=== PATIENT | female | born 1950 | race Hispanic/Latino ===

== ENCOUNTER 2017-02-24 13:28 | Observation (INO) | payer MEDICARE, OTHER ==
[2017-02-24 13:36] VITALS: BMI 36.7
--- NOTE | 2017-02-24 13:41 | ED PDOC ---
Arrival/HPI - General Time Seen by Provider: 02/24/17 13:34 Historian: Patient - History of Present Illness Narrative History of Present Illness (Text): 02/24/17 13:38 66yo female with Past medical history of hypertension and vertigo biba for 2days history of persistent dizziness. States she took her medication, but still dizzy. States she hears a "cracking" noise in her ears, whenever she bites on food. Also note rhinorrhea for 2days. Denies fever, chills, cough, chest pain, focal weakness, nausea, vomiting, sick contact, any other complaint. Past Medical History - Provider Review Nursing Documentation Reviewed: Yes - Infectious Disease Hx of Infectious Diseases: None - Tetanus Immunization Tetanus Immunization: Unknown - Past Medical History Past Medical History: Non-Contributing - Cardiac Hx Pacemaker: No - Neurological Hx Paralysis: No - HEENT Other/Comment: missing teeth and front bottom right tooth loose - Hematological/Oncological Hx Blood Transfusions: No Hx Blood Transfusion Reaction: No - Integumentary Other/Comment: multiple discoloration to ble - Musculoskeletal/Rheumatological Hx Musculoskeletal Disorders: No - Psychiatric Hx Emotional Abuse: No Hx Physical Abuse: No Hx Substance Use: No - Past Surgical History Past Surgical History: Non-Contributing - Surgical History Hx Inguinal Hernia Repair: Yes (umbilical hernia repair) Other/Comment: stitches in chin left knee head from various childhood accidents. - Anesthesia Hx Anesthesia Reactions: No Hx Malignant Hyperthermia: No - Suicidal Assessment Feels Threatened In Home Enviroment: No Family/Social History - Physician Review Nursing Documentation Reviewed: Yes Family/Social History: Unknown Family HX Smoking Status: Never Smoked Hx Alcohol Use: No Hx Substance Use: No Hx Substance Use Treatment: No Allergies/Home Meds Allergies/Adverse Reactions: Allergies No Known Allergies Allergy (Verified 05/23/15 09:38) Home Medications: Home Meds Medication Instructions Recorded Confirmed Amlodipine Besylate [Norvasc] 5 mg PO DAILY 08/10/14 02/24/17 Meclizine HCl [Antivert/25] 25 mg PO TID 08/21/15 02/24/17 Review of Systems - Physician Review All systems were reviewed & negative as marked: Yes - Review of Systems Constitutional: Normal Eyes: Normal ENT: Rhinorrhea Respiratory: Normal Cardiovascular: Normal Gastrointestinal: Normal Genitourinary Female: Normal Musculoskeletal: Normal Skin: Normal Neurological: Dizziness. absent: Headache, Focal Weakness, Speech Changes, Facial Droop Endocrine: Normal Hemo/Lymphatic: Normal Psychiatric: Normal Physical Exam Vital Signs Reviewed: Yes Vital Signs Temp Pulse Resp BP Pulse Ox 02/24/17 17:48 75 24 149/70 97 02/24/17 13:28 98.1 F 68 18 157/75 H 98 Temperature: Afebrile Blood Pressure: Normal Pulse: Regular Respiratory Rate: Normal Appearance: Positive for: Well-Appearing, Non-Toxic, Comfortable Pain Distress: None Mental Status: Positive for: Alert and Oriented X 3 - Systems Exam Head: Present: Atraumatic, Normocephalic Pupils: Present: PERRL Extroacular Muscles: Present: EOMI Conjunctiva: Present: Normal Mouth: Present: Moist Mucous Membranes Neck: Present: Normal Range of Motion Respiratory/Chest: Present: Clear to Auscultation, Good Air Exchange. No: Respiratory Distress, Accessory Muscle Use Cardiovascular: Present: Regular Rate and Rhythm, Normal S1, S2. No: Murmurs Abdomen: Present: Normal Bowel Sounds. No: Tenderness, Distention, Peritoneal Signs Back: Present: Normal Inspection Upper Extremity: Present: Normal Inspection. No: Cyanosis, Edema Lower Extremity: Present: Normal Inspection. No: Edema Neurological: Present: GCS=15, CN II-XII Intact, Speech Normal, Motor Func Grossly Intact, Normal Sensory Function, Normal Cerebellar Funct, Norm Deep Tendon Reflexes, Gait Normal, Memory Normal, Normal 2Pt Descrimination, Other ( No focal neurological deficit) Skin: Present: Warm, Dry, Normal Color. No: Rashes Psychiatric: Present: Alert, Oriented x 3, Normal Insight, Normal Concentration Medical Decision Making ED Course and Treatment: 02/24/17 17:03 PT presented for stated history. she was neurologically stable in Emergency department. Lab was unremarkable. Head CT ordered EKG Sinus rhythm with fusion complexes @75bpm Pt however continue to complain of dizziness. 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 Mecline was ordered in Emergency department. Case was DW Dr. Brady and she was placed on Tele OBS. Head CT - IMPRESSION: No acute intracranial hemorrhage or large acute infarct so far as can be seen. Suspect minimal chronic periventricular white matter ischemic changes Moderate generalized volume loss. - Lab Interpretations Lab Results: 02/24/17 14:05 02/24/17 14:05 Lab Results 02/24/17 16:15: Urine Color Yellow, Urine Appearance Clear, Urine pH 7.0, Ur Specific [place] 1.015, Urine Protein Negative, Urine Glucose (UA) Negative, Urine Ketones Trace H, Urine Blood Negative, Urine Nitrate Negative, Urine Bilirubin Negative, Urine Urobilinogen 0.2, Ur Leukocyte Esterase Negative 02/24/17 14:05: Sodium 140, Potassium 4.0, Chloride 107, Carbon Dioxide 23, Anion Gap 14, BUN 12, Creatinine 0.6 L, Est GFR ( Amer) > 60, Est GFR ( Non-Af Amer) > 60, Random Glucose 95, Calcium 9.4, Total Bilirubin 0.7, AST 29, ALT 46, Alkaline Phosphatase 45, Lactate Dehydrogenase 611, Total Creatine Kinase 95, Troponin I < 0.01, Total Protein 6.8, Albumin 4.1, Globulin 2.8, Albumin/Globulin Ratio 1.5 02/24/17 14:05: PT 11.1, INR 1.02, APTT 31.1 02/24/17 14:05: WBC 4.9, RBC 5.09, Hgb 14.2, Hct 43.3, MCV 85.1, MCH 27.9, MCHC 32.8, RDW 13.8, Plt Count 189, MPV 12.1 H, Gran % 48.4 L, Lymph % (Auto) 41.8 H , [place] % (Auto) 6.1 H, Eos % (Auto) 2.9, Baso % (Auto) 0.8, Gran # 2.37, Lymph # 2.1, Emm[place] # 0.3, Eos # 0.1, Baso # 0.04 - RAD Interpretation Radiology Orders: 02/24/17 16:33 HEAD W/O CONTRAST [CT] Stat - Medication Orders Current Medication Orders: Amlodipine Besylate (Norvasc) 5 mg PO DAILY [facility] Sodium Chloride (Sodium Chloride 0.45%) 1,000 mls @ 60 mls/hr IV .[id number] [facility] Meclizine HCl (Antivert) 25 mg PO TID [facility]INO Discontinued Medications Sodium Chloride (Sodium Chloride 0.9%) 1,000 mls @ 100 mls/hr IV .Q10H STA Stop: 02/25/17 02:38 Last Admin: 02/24/17 17:00 Dose: 100 mls/hr eMAR Start Stop Document 02/24/17 17:00 RG (Rec: 02/24/17 17:37 RG [id number]) Intravenous Solution Start Date 02/24/17 Start Time 17:00 End Date 02/24/17 Meclizine HCl (Antivert) 25 mg PO STAT STA Stop: 02/24/17 16:49 Last Admin: 02/24/17 17:00 Dose: 25 mg Disposition/Present on Arrival - Present on Arrival Any Indicators Present on Arrival: No History of DVT/PE: No History of Uncontrolled Diabetes: No Urinary Catheter: No History Surgical Site Infection Following: None - Disposition Have Diagnosis and Disposition been Completed?: Yes Diagnosis: Near syncope Disposition: HOSPITALIZED Disposition Time: 16:35 Patient Problems: Current Active Problems Problem Status Onset Near syncope Acute Condition: FAIR
[2017-02-24 14:35] LABS: BASO # 0.04 K/mm3 (0.0-2.0); BASO % 0.8 % (0.0-3.0); EOS # 0.1 (0.0-0.7); EOS % 2.9 % (1.5-5.0); GRAN # 2.37 (1.4-6.5); GRAN % 48.4 % (50.0-68.0); HEMATOCRIT 43.3 % (36.0-48.0); LYMPH # 2.1 (1.2-3.4); LYMPH % 41.8 % (22.0-35.0); MEAN CELL VOLUME 85.1 fl (80.0-105.0); MEAN CORPUSCULAR HEMOGLOBIN 27.9 pg (25.0-35.0); MEAN CORPUSCULAR HGB CONC 32.8 g/dl (31.0-37.0); MEAN PLATELET VOLUME 12.1 fl (7.0-11.0); MONO # 0.3 (0.1-0.6); MONO % 6.1 % (1.0-6.0); RED CELL DISTRIBUTION WIDTH 13.8 % (11.5-14.5); WHITE BLOOD COUNT 4.9 10^3/ul (4.5-11.0)
[2017-02-24 14:40] LABS: ALB/GLOB RATIO 1.5 (1.1-1.8); ALKALINE PHOSPHATASE 45 U/L (38-126); ALT/SGPT 46 U/L (7-56); AST/SGOT 29 U/L (14-36); BILIRUBIN,TOTAL 0.7 mg/dL (0.2-1.3); BLOOD UREA NITROGEN 12 mg/dL (7-21); CALCIUM 9.4 mg/dL (8.4-10.5); CARBON DIOXIDE 23 mmol/L (21-33); CHLORIDE 107 mmol/L (98-107); GFR AFRICAN-AMERICAN > 60; GLUCOSE,RANDOM 95 mg/dL (70-110); SODIUM 140 mmol/L (132-148); TOTAL PROTEIN 6.8 g/dL (5.8-8.3)
[2017-02-24 14:47] LABS: TROPONIN I < 0.01 ng/mL
[2017-02-24 14:49] LABS: INR 1.02 (0.93-1.08); PARTIAL THROMBOPLASTIN TIME 31.1 Seconds (25.1-36.5)
[2017-02-24 16:34] LABS: URINE APPEARANCE CLEAR (CLEAR); URINE BILIRUBIN NEGATIVE (NEGATIVE); URINE BLOOD NEGATIVE (NEGATIVE); URINE COLOR YELLOW (YELLOW); URINE GLUCOSE (UA) NEGATIVE (NEGATIVE); URINE KETONE TRACE mg/dL (NEGATIVE); URINE LEUKOCYTE ESTERASE NEGATIVE Leu/uL (NEGATIVE); URINE PROTEIN NEGATIVE mg/dL (<30 mg/dL); URINE UROBILINOGEN 0.2 E.U./dL (<1 E.U./dL)
[2017-02-24] MEDS ORDERED: Sodium Chloride 0.9% 1,000 ML IV STA (16:39)
--- NOTE | 2017-02-24 17:24 | CT ---
PROCEDURE: CT HEAD WITHOUT CONTRAST. HISTORY: Dizziness. COMPARISON: None available. Comparison made with prior CT scan of the brain dated 11/07/2014. TECHNIQUE: Axial computed tomography images were obtained through the head/brain without intravenous contrast. Radiation dose: Total exam DLP = 629.69 mGy-cm. This CT exam was performed using one or more of the following dose reduction techniques: Automated exposure control, adjustment of the mA and/or kV according to patient size, and/or use of iterative reconstruction technique. FINDINGS: HEMORRHAGE: No acute parenchymal, subarachnoid nor extra-axial hemorrhage. BRAIN: . No evidence of large acute infarct however suspect minimal chronic periventricular white matter ischemic changes. . No obvious parenchymal nor extra-axial masses or collections identified on this noncontrast study. Moderate generalized volume loss. VENTRICLES: No evidence of obstructive hydrocephalus. CALVARIUM: There are no acute calvarial fractures. PARANASAL SINUSES: Visualized paranasal sinuses are well-developed and currently well-aerated. MASTOID AIR CELLS: Mastoid air complexes are well-developed and currently well-aerated. OTHER FINDINGS: None. IMPRESSION: No acute intracranial hemorrhage or large acute infarct so far as can be seen. Suspect minimal chronic periventricular white matter ischemic changes Moderate generalized volume loss.
[2017-02-24] MEDS ORDERED: Sodium Chloride 0.45% 1,000 ML IV SCH (18:00)
[2017-02-25 06:22] LABS: HEMATOCRIT 41.7 % (36.0-48.0); MEAN CELL VOLUME 85.6 fl (80.0-105.0); MEAN CORPUSCULAR HEMOGLOBIN 27.7 pg (25.0-35.0); MEAN CORPUSCULAR HGB CONC 32.4 g/dl (31.0-37.0); MEAN PLATELET VOLUME 11.9 fl (7.0-11.0); RED CELL DISTRIBUTION WIDTH 14.1 % (11.5-14.5); WHITE BLOOD COUNT 5.4 10^3/ul (4.5-11.0)
[2017-02-25 06:33] VITALS: O2SAT 96
[2017-02-25 06:50] LABS: ALB/GLOB RATIO 1.3 (1.1-1.8); ALKALINE PHOSPHATASE 39 U/L (38-126); ALT/SGPT 30 U/L (7-56); AST/SGOT 30 U/L (14-36); BILIRUBIN,TOTAL 0.6 mg/dL (0.2-1.3); BLOOD UREA NITROGEN 14 mg/dL (7-21); CALCIUM 8.9 mg/dL (8.4-10.5); CARBON DIOXIDE 25 mmol/L (21-33); CHLORIDE 106 mmol/L (98-107); GFR AFRICAN-AMERICAN > 60; GLUCOSE,RANDOM 95 mg/dL (70-110); POTASSIUM 3.7 mmol/L (3.6-5.0); SODIUM 139 mmol/L (132-148); TOTAL PROTEIN 6.7 g/dL (5.8-8.3)
--- NOTE | 2017-02-25 06:57 | HP ---
HISTORY OF PRESENT ILLNESS: I was called on to the emergency room to see Tracy. She has been having dizziness for about 2 days now, she is wobbly, she tells me, it looks like she is drunk. She is hearing a cracking noise in her ears whenever she bites foods, some rhinorrhea for 2 days. She feels drunk when she walks, dizzy, like she is going to fall down. She is on Antivert for vertigo already and she has hypertension, started medication for that too. A 66-year-old female with dizziness for 2 days, it will not go away. She is on medicine for dizziness and for hypertension. She just cannot walk straight, feels like she is going to fall. No pacemaker. She has missing teeth from front and bottom tooth. Discoloration of both lower extremities. She had inguinal hernia repair, stitches in her chin, left knee, various childhood accidents led to scarring. FAMILY HISTORY: Unknown family history. SOCIAL HISTORY: No smoker, no drinking, no drugs. ALLERGIES: NO KNOWN DRUG ALLERGIES. MEDICATIONS: She takes Antivert for dizzy and Norvasc 5 for the blood pressure. REVIEW OF SYSTEMS: No acute vision or hearing changes. No sore throat, no neck pain. She is dizzy, wobbly. She turns her head too fast. If she walks, she feels like she is walking drunk. No chest pain or palpitations. No shortness of breath, coughing or wheezing. No nausea, vomiting, constipation or diarrhea. No abdominal pain. No problems urinating. No pain to the legs or arms. Skin from what she can tell is intact. No ulcers or rashes. She is completely dizzy. No headache. No focal weakness. No swelling. Not depressed or anxious. PHYSICAL EXAMINATION: GENERAL: Well appearing, nontoxic, and at rest, alert and oriented x3. VITAL SIGNS: She has a 98.1 temperature, 68 pulse, 18 respiratory rate, 157/75 blood pressure, and 98% O2 saturation on room air. HEENT: Head is atraumatic and normocephalic. Extraocular muscles are intact. Pupils are equal and reactive to light and accommodation. Throat is moist. NECK: Supple. HEART: Regular rate. Normal S1 and S2. LUNGS: Clear to auscultation bilaterally. No wheezing. No rhonchi. No rales. ABDOMEN: Soft and nontender. Positive bowel sounds. No guarding or rebound. No CVA tenderness. EXTREMITIES: No edema. There is some discoloration on legs. She can move all 4 extremities. NEUROLOGIC: GCS is 15. Cranial nerves II through XII grossly intact. Normal speech. Alert and oriented x3. SKIN: Warm and dry. No apparent rashes or ulcers. ENDOCRINE: Thyroid midline. No palpable appreciable adenopathy. LABORATORY DATA: She had lots of tests. She has urine that is clear. Sodium 144, potassium 4, BUN 12, creatinine 0.6, GFR is greater than 60, sugar is 95, calcium 9.4, total bilirubin is 0.78, AST is 29, ALT is 46, alk phos is 45, lactic dehydrogenase is 611, total creatine kinase is 95, troponin I is less than 0.01. Total protein is 6.0, albumin is 4.1, globulin 2.8. INR is 1.02. White count 4.9, hemoglobin 14.2, hematocrit 42.3, platelets of 189. IMPRESSION AND PLAN: She had a CAT scan of her head. It showed no acute intracranial hemorrhage or large acute infarct can be seen. Possible minimal chronic periventricular white matter ischemic changes. She is going to have a consult with Neurology. She is going to have IV fluids, meclizine, amlodipine, carotid Doppler, brain MRI, physical therapy,and we will see how she does. She is in observation status. She is here for acute dizziness that will not be reversed. She feels very wobbly. Sanjay Brady DO MTDD
[2017-02-25 10:45] VITALS: PULSE 76
--- NOTE | 2017-02-25 11:34 | CARD ---
APPROVED REPORT EKG Measurement Heart [id number] <Conclusion> Sinus rhythm No change
[2017-02-25 12:40] VITALS: BP 118/74; RESP 17; TEMP 96.6
--- NOTE | 2017-02-25 14:22 | MRI ---
PROCEDURE: MRI BRAIN WITHOUT CONTRAST HISTORY: dizzy COMPARISON: Comparison is made with previous study dated 11/07/2014 TECHNIQUE: Multiplanar, multisequence MR images of the brain were obtained without intravenous contrast enhancement. FINDINGS: HEMORRHAGE: None DWI: No evidence of an acute or early subacute infarction. BRAIN PARENCHYMA: No mass effect or edema. No atrophy or chronic microvascular ischemic changes. VENTRICLES: Unremarkable. No hydrocephalus. CRANIUM: Unremarkable. ORBITS: Grossly unremarkable. PARANASAL SINUSES/MASTOIDS: Clear VASCULAR SYSTEM: Skull base flow voids intact. OTHER FINDINGS: None. IMPRESSION: Unremarkable non contrast enhanced MRI of the brain. No significant interval change noted since the previous study.
--- NOTE | 2017-02-25 16:17 | US ---
PROCEDURE: Bilateral carotid artery duplex ultrasound HISTORY: Carotid stenosis dizziness PHYSICIAN(S): Stefan Conley MD. TECHNIQUE: Duplex sonography and color-flow Doppler were used to evaluate the carotid bifurcations and limited segments of the vertebral arteries bilaterally. The exam is limited by body habitus and tortuous vessels FINDINGS: There is mild smooth heterogeneous plaque noted at the carotid bifurcations bilaterally. The peak systolic velocity in the proximal right internal carotid artery is 68 cm/sec. This corresponds to a 20 to 39% proximal right ICA stenosis. Normal systolic velocities are noted in the proximal right external carotid artery. There is antegrade flow in the right vertebral artery. The peak systolic velocity in the proximal left internal carotid artery is 70 cm/sec. This corresponds to a 20 to 39% proximal left ICA stenosis. Normal systolic velocities are noted in the proximal left external carotid artery. There is antegrade flow in the left vertebral artery. IMPRESSION: 1. Bilateral 20-39% proximal ICA stenoses. 2. Antegrade flow in both vertebral arteries.
--- NOTE | 2017-02-25 19:59 | CON ---
DATE: 02/25/2017 NEUROLOGIC CONSULTATION CHIEF COMPLAINT: Dizziness. HISTORY OF PRESENT ILLNESS: A 66-year-old woman, past medical history of hypertension, vertigo who came in with 2 days persistent dizziness and with tinnitus and finally found nauseous as well as rhinorrhea for 2 days. She underwent MRI of the brain, which showed no intracranial abnormality. Carotid Doppler showed just 20% to 39% proximal ICA stenosis. She is doing much better after she get Antivert in the hospital, has some hydration. Blood pressure was stable. She was discharged home. PAST MEDICAL HISTORY: History of hypertension and vertigo. FAMILY HISTORY: Noncontributory. MEDICATIONS: Reviewed by nurse per reconciliation sheet. SOCIAL HISTORY: No illicit drug use, smoking, or EtOH abuse. REVIEW OF SYSTEMS: A 14-point review of systems is negative except as per the HPI. PHYSICAL EXAMINATION: VITAL SIGNS: Temperature 96.6, pulse rate 76, blood pressure 118/74, respiratory rate 17. GENERAL: The patient is seen up in bed, in no acute distress. HEENT: Head is atraumatic and normocephalic. PERRLA. Extraocular muscles are intact. NECK: Supple. No JVD. LUNGS: Clear to auscultation. No adventitious sounds. HEART: S1 and S2. Normal rate and rhythm. No murmurs, rubs, or gallops. ABDOMEN: Soft, nontender and nondistended. Bowel sounds are present. EXTREMITIES: No clubbing. No cyanosis. Peripheral pulses are 2+ felt bilaterally. NEUROLOGIC: The patient is alert and oriented to person, place, month, and year. Speech fluent without errors. Cranial nerves II through XII are intact. Motor exam: Moves all extremities equally. Toes are downgoing bilaterally. Sensory exam: Light touch, pinprick, proprioception, vibration intact. Coordination of [id number] intact. Gait is guarded. LABORATORY DATA: CMP and CBC is unremarkable. ASSESSMENT AND PLAN: This is a 66-year-old women with history of hypertension and vertigo who presents with persistent dizziness, tinnitus, some rhinorrhea for last few days. MRI of the brain showed no acute intracranial abnormality. Carotid Doppler showed 20% to 39% proximal ICA stenosis. Her dizziness is more of positional vertigo. At this time, we would recommend: 1. Avoid sudden movements. 2. Vestibular therapy as an outpatient. 3. Salt restriction diet and meclizine 25 mg p.o. t.i.d. 4. Follow up in our neurologic office. She is clinically stable from my standpoint. Skyler Iglesias MD
--- NOTE | 2017-02-26 06:46 | DS ---
HISTORY OF PRESENT ILLNESS: I am hoping to discharge her later on this afternoon. She is currently on IV fluids, meclizine and Norvasc. She came in dizzy. As for this morning, was sitting up, eating breakfast, she is not as dizzy. PHYSICAL EXAMINATION: VITAL SIGNS: 97.3 temperature, 80 pulse, 124/76 blood pressure, 18 respiratory rate, 96% O2 sat on room air. HEENT: Head atraumatic, normocephalic. Throat is moist. NECK: Supple. HEART: Regular rate. LUNGS: Clear to auscultation. ABDOMEN: Soft, obese. EXTREMITIES: No edema. MEDICATIONS: She is currently on Antivert, Norvasc and IV fluids. LABORATORY DATA: She has a 5.4 white count, 13.5 hemoglobin, 41.7 hematocrit, 186 platelets. She has 139 sodium, potassium 3.7, BUN is 14, creatinine is 0.7, GFR is greater than 60, sugar is 95, calcium is 8.9, total bilirubin is 0.6, AST is 30, ALT is 30, alkaline phosphatase 39, total protein 6.7. Troponin I is less than 0.01. Urine was good. IMPRESSION: She has a consult with Neurology, going to see what they want to add. Waiting for the brain MRI to come back and the carotid ultrasound. Hopefully we will discharge her later this afternoon. Sanjay Brady DO
== END 2017-02-25 17:20 | disposition home or self-care (01) ==
LOC: ED 13:28 → ERH 17:25 → 3RSO 19:21
PROVIDERS: ADMIT Family Medicine; ATTEND Family Medicine
DX: I65.29 Occlusion and stenosis of unspecified carotid artery (principal); I10 Essential (primary) hypertension; Z79.899 Other long term (current) drug therapy; R40.2412 Glasgow coma scale score 13-15, at arrival to emergency department
CPT/HCPCS: 36415; 70450; 70551; 80053; 81003; 82550; 83615; 84484; 85025; 85027; 85610; 85730; 93005; 93880; 97116; 97161; 99285; G0378; G8978; G8979; G8980; J7030; J7040

== ENCOUNTER 2017-03-12 08:24 | Emergency (ER) | payer MEDICARE, OTHER ==
[2017-03-12] MEDS ORDERED: Sodium Chloride 0.9% 1,000 ML IV SCH (09:15)
[2017-03-12 09:41] LABS: BASO # 0.04 K/mm3 (0.0-2.0); BASO % 0.7 % (0.0-3.0); EOS # 0.1 (0.0-0.7); EOS % 2.6 % (1.5-5.0); GRAN # 2.65 (1.4-6.5); HEMOGLOBIN 14.6 g/dL (12.0-16.0); LYMPH # 2.1 (1.2-3.4); MEAN CORPUSCULAR HEMOGLOBIN 28.4 pg (25.0-35.0); MEAN CORPUSCULAR HGB CONC 33.4 g/dl (31.0-37.0); MEAN PLATELET VOLUME 12.4 fl (7.0-11.0); MONO # 0.5 (0.1-0.6); MONO % 8.7 % (1.0-6.0); RBC 5.14 10^6/uL (3.5-6.1); RED CELL DISTRIBUTION WIDTH 13.9 % (11.5-14.5); WHITE BLOOD COUNT 5.4 10^3/ul (4.5-11.0)
[2017-03-12 09:42] VITALS: TEMP 98
[2017-03-12 09:44] VITALS: BMI 35.2
[2017-03-12 09:53] LABS: ALB/GLOB RATIO 1.2 (1.1-1.8); ALBUMIN 3.8 g/dL (3.0-4.8); ALT/SGPT 33 U/L (7-56); AST/SGOT 28 U/L (14-36); BLOOD UREA NITROGEN 10 mg/dL (7-21); CALCIUM 9.2 mg/dL (8.4-10.5); GFR AFRICAN-AMERICAN > 60; GFR NON-AFRICAN AMERICAN > 60
--- NOTE | 2017-03-12 09:55 | ED PDOC ---
Arrival/HPI - General Chief Complaint: Dizziness/Lightheaded Time Seen by Provider: 03/12/17 08:53 Historian: Patient - History of Present Illness Narrative History of Present Illness (Text): 03/12/17 09:00 Tracy Handley is a 66 year old female who presents to the emergency department complaining of chronic dizziness for many years. Recent CT scan and MRI have been completed. Patient is follows by neurology and has an ENT appointment next week. Patient endorses that she is currently on Meclizine. No other complaints presented at this time. Symptom Onset: Gradual Symptom Course: Unchanged, Intermittent Activities at Onset: Light Context: Home Past Medical History - Provider Review Nursing Documentation Reviewed: Yes - Infectious Disease Hx of Infectious Diseases: None - Tetanus Immunization Tetanus Immunization: Unknown - Past Medical History Past Medical History: Non-Contributing - Cardiac Hx Cardiac Disorders: Yes Hx Hypertension: Yes - Pulmonary Hx Respiratory Disorders: Yes Hx Emphysema: Yes - Neurological Hx Neurological Disorder: Yes Hx Dizziness: Yes Hx Transient Ischemic Attacks (TIA): Yes - HEENT Hx HEENT Disorder: No Other/Comment: missing teeth and front bottom right tooth loose - Renal Hx Renal Disorder: No - Endocrine/Metabolic Hx Endocrine Disorders: No - Hematological/Oncological Hx Blood Disorders: No - Integumentary Hx Dermatological Disorder: Yes - Musculoskeletal/Rheumatological Hx Falls: No - Gastrointestinal Hx Gastrointestinal Disorders: No - Genitourinary/Gynecological Hx Genitourinary Disorders: No - Psychiatric Hx Psychophysiologic Disorder: No Hx Emotional Abuse: No Hx Physical Abuse: No Hx Substance Use: No - Past Surgical History Past Surgical History: Non-Contributing - Surgical History Other/Comment: stitches in chin left knee head from various childhood accidents. - Anesthesia Hx Anesthesia Reactions: No Hx Malignant Hyperthermia: No - Suicidal Assessment Feels Threatened In Home Enviroment: No Family/Social History - Physician Review Nursing Documentation Reviewed: Yes Family/Social History: No Known Family HX Smoking Status: Never Smoked Hx Alcohol Use: No Hx Substance Use: No Hx Substance Use Treatment: No Allergies/Home Meds Allergies/Adverse Reactions: Allergies No Known Allergies Allergy (Verified 03/12/17 08:53) Home Medications: Home Meds Medication Instructions Recorded Confirmed Amlodipine Besylate [Norvasc] 5 mg PO DAILY 08/10/14 03/12/17 Meclizine HCl [Antivert/25] 25 mg PO TID 08/21/15 03/12/17 Review of Systems - Physician Review All systems were reviewed & negative as marked: Yes - Review of Systems Constitutional: absent: Fevers, Night Sweats Eyes: absent: Vision Changes ENT: absent: Hearing Changes Respiratory: absent: SOB, Cough Cardiovascular: absent: Chest Pain Gastrointestinal: absent: Abdominal Pain Genitourinary Female: absent: Dysuria, Frequency Musculoskeletal: absent: Arthralgias, Back Pain Skin: absent: Rash, Pruritis Neurological: Dizziness Endocrine: absent: Diaphoresis Hemo/Lymphatic: absent: Adenopathy Psychiatric: absent: Anxiety, Depression Physical Exam Vital Signs Reviewed: Yes Vital Signs Temp Pulse Resp BP Pulse Ox 03/12/17 11:31 81 16 136/76 98 03/12/17 09:41 98.0 F 71 18 148/76 97 03/12/17 08:50 98 F 79 18 139/84 98 Temperature: Afebrile Blood Pressure: Normal Pulse: Regular Respiratory Rate: Normal Appearance: Positive for: Well-Appearing, Non-Toxic, Comfortable Pain Distress: None Mental Status: Positive for: Alert and Oriented X 3 - Systems Exam Head: Present: Atraumatic, Normocephalic Pupils: Present: PERRL Extroacular Muscles: Present: EOMI Conjunctiva: Present: Normal Mouth: Present: Moist Mucous Membranes Neck: Present: Normal Range of Motion Respiratory/Chest: Present: Clear to Auscultation, Good Air Exchange. No: Respiratory Distress, Accessory Muscle Use Cardiovascular: Present: Regular Rate and Rhythm, Normal S1, S2. No: Murmurs Abdomen: Present: Normal Bowel Sounds. No: Tenderness, Distention, Peritoneal Signs Back: Present: Normal Inspection Upper Extremity: Present: Normal Inspection. No: Cyanosis, Edema Lower Extremity: Present: Normal Inspection. No: Edema Neurological: Present: GCS=15, CN II-XII Intact, Speech Normal Skin: Present: Warm, Dry, Normal Color. No: Rashes Psychiatric: Present: Alert, Oriented x 3, Normal Insight, Normal Concentration Medical Decision Making ED Course and Treatment: 03/12/17 08:55 Impression: Plan: -- Reglan and IV fluids -- Labs -- Reassess and disposition Prior Visits: Notes and results from previous visits were reviewed. Patient was last seen in the emergency department on 02/24/17 for 2days history of persistent dizziness. Patient was discharged home. Progress Notes: - Lab Interpretations Lab Results: 03/12/17 09:30 03/12/17 09:30 Lab Results 03/12/17 09:30: Sodium 143, Potassium 4.0, Chloride 108 H, Carbon Dioxide 24, Anion Gap 14, BUN 10, Creatinine 0.5 L, Est GFR ( Amer) > 60, Est GFR ( Non-Af Amer) > 60, Random Glucose 93, Calcium 9.2, Total Bilirubin 0.5, AST 28, ALT 33, Alkaline Phosphatase 39, Total Protein 7.0, Albumin 3.8, Globulin 3.2, Albumin/Globulin Ratio 1.2 03/12/17 09:30: WBC 5.4, RBC 5.14, Hgb 14.6, Hct 43.7, MCV 85.0, MCH 28.4, MCHC 33.4, RDW 13.9, Plt Count 163, MPV 12.4 H, Gran % 49.0 L, Lymph % (Auto) 39.0 H , [place] % (Auto) 8.7 H, Eos % (Auto) 2.6, Baso % (Auto) 0.7, Gran # 2.65, Lymph # 2.1, [place] # 0.5, Eos # 0.1, Baso # 0.04 I have reviewed the lab results: Yes - Medication Orders Current Medication Orders: Discontinued Medications Sodium Chloride (Sodium Chloride 0.9%) 1,000 mls @ 100 mls/hr IV .Q10H CATARINO Last Admin: 03/12/17 09:45 Dose: 100 mls/hr eMAR Start Stop Document 03/12/17 09:45 OCS (Rec: 03/12/17 09:45 OCS [facility]) Intravenous Solution Start Date 03/12/17 Start Time 09:32 End Date 03/12/17 Metoclopramide HCl (Reglan) 10 mg IVP STAT STA Stop: 03/12/17 09:03 Last Admin: 03/12/17 09:45 Dose: 10 mg IVP Administration Document 03/12/17 09:45 OCS (Rec: 03/12/17 09:45 OCS [facility]) Charges for Administration # of IVP Administrations 1 - Scribe Statement The provider has reviewed the documentation as recorded by the Ernie Lees Provider Scribe Attestation: All medical record entries made by the Scribe were at my direction and personally dictated by me. I have reviewed the chart and agree that the record accurately reflects my personal performance of the history, physical exam, medical decision making, and the department course for this patient. I have also personally directed, reviewed, and agree with the discharge instructions and disposition. Disposition/Present on Arrival - Present on Arrival Any Indicators Present on Arrival: No History of DVT/PE: No History of Uncontrolled Diabetes: No Urinary Catheter: No History of Decub. Ulcer: No History Surgical Site Infection Following: None - Disposition Have Diagnosis and Disposition been Completed?: Yes Diagnosis: Dizziness Disposition: HOME/ ROUTINE Disposition Time: 10:20 Condition: IMPROVED Discharge Instructions (ExitCare): Dizziness (ED) Additional Instructions: Thank you for letting us take care of you today. The emergency medical care you received today was directed at your acute symptoms. If you were prescribed any medication, please fill it and take as directed. It may take several days for your symptoms to resolve. Return to the Emergency Department if your symptoms worsen, do not improve, or if you have any other problems. Please contact your doctor or call one of the physicians/clinics you have been referred to that are listed on the Patient Visit Information form that is included in your discharge packet. Bring any paperwork you were given at discharge with you along with any medications you are taking to your follow up visit. Our treatment cannot replace ongoing medical care by a primary care provider (PCP) outside of the emergency department. Thank you for allowing the [facility] team to be part of your care today. Follow up with the ENT doctor as scheduled and then your primary doctor. Referrals: [facility], [Non-Staff] - Follow up with primary Forms: Appointuit (Macedonian)
[2017-03-12 11:32] VITALS: BP 136/76; PULSE 81; RESP 16; O2SAT 98
== END 2017-03-12 11:26 | disposition home or self-care (01) ==
LOC: ED 08:24
DX: R42 Dizziness and giddiness (principal); I10 Essential (primary) hypertension
CPT/HCPCS: 80053; 85025; 96374; 99285; J2765; J7040

== ENCOUNTER 2018-03-20 12:13 | Outpatient (CLI) | payer MEDICARE | END 2018-03-20 12:14 | disposition home or self-care (01) | LOC: RAD 12:13 ==

== ENCOUNTER 2018-04-09 08:21 | Outpatient (CLI) | payer MEDICARE | END 2018-04-09 08:22 | disposition home or self-care (01) | LOC: PAT 08:21 ==

== ENCOUNTER 2018-04-20 07:47 | Day surgery (SDC) | payer MEDICARE ==
[2018-04-20 08:33] VITALS: BMI 35.2
[2018-04-20] MEDS ORDERED: Midazolam 2 MG/2 ML VIAL ONE (11:01)
[2018-04-20] MEDS ORDERED: Propofol 10 mg/ml Inj (20 ML) ONE (11:01)
[2018-04-20] MEDS ORDERED: Rocuronium 10 mg/ml (5 ml) ONE (11:04)
[2018-04-20] MEDS ORDERED: Bupivacaine 0.5% 50 ML IJ ONE (11:09)
[2018-04-20] MEDS ORDERED: Glycopyrrolate 0.2 mg/ml (2ml vial) ONE ×2 (11:59→12:09)
[2018-04-20] MEDS ORDERED: HYDROmorphone 0.5 mg/0.5 ml ISec IVP PRN (12:02)
[2018-04-20] MEDS ORDERED: Sodium Chloride 0.9% 1,000 ML IV SCH (12:15)
[2018-04-20] MEDS ORDERED: Oxycodone/Acetaminophen 5/325 mg Tab PO PRN (12:17)
--- NOTE | 2018-04-20 12:17 | PCM.SURG1 ---
Surgeon's Initial Post Op Note - Surgeon's Notes Surgeon: Dr. Salamanca [employer] Specialist: Dr. Krishnamurthy PGY3 Type of Anesthesia: General Endo Pre-Operative Diagnosis: Umbilical hernia Operative Findings: See operative dictation Post-Operative Diagnosis: Umbilical hernia Operation Performed: Laparoscopic umbilical hernia repair with mesh Specimen/Specimens Removed: Hernia fat Estimated Blood Loss: EBL {In ML}: 5 Drains Used: No Drains Post-Op Condition: Good Date of Surgery/Procedure: 04/20/18 Time of Surgery/Procedure: 12:17
[2018-04-20] MEDS: HYDROmorphone 0.5 mg/0.5 ml ISec IVP PRN ×2 (12:30→12:55)
[2018-04-20] MEDS ORDERED: HYDROmorphone 1 mg/ml ISec ONE (12:36)
[2018-04-20] MEDS ORDERED: HYDROmorphone 0.5 mg/0.5 ml ISec ONE ×2 (12:58→13:29)
[2018-04-20] MEDS ORDERED: Oxycodone/Acetaminophen 5/325 mg Tab ONE (14:00)
[2018-04-20 14:21] VITALS: TEMP 97.5
[2018-04-20 15:41] VITALS: RESP 18
[2018-04-20 17:27] VITALS: BP 132/56; PULSE 72; O2SAT 98
--- NOTE | 2018-04-20 23:09 | OP ---
PROCEDURE DATE: 04/20/2018 PREOPERATIVE DIAGNOSIS: Painful umbilical hernia. POSTOPERATIVE DIAGNOSIS: Painful umbilical hernia. PROCEDURE PERFORMED: Laparoscopic repair of the umbilical hernia with a 9-cm Symbotex circular mesh. SURGEON: Jorge Salamanca MD MINE ENGINEERING SUPERINTENDENT: Sid Krishnamurthy DO ANESTHESIOLOGIST: Nanette Ruvalcaba MD ANESTHESIA: General endotracheal anesthesia. ESTIMATED BLOOD LOSS: Minimal. SPECIMENS: None. INDICATION FOR PROCEDURE: The patient is a 67-year-old female with a history of painful lump near the umbilicus. The patient was examined and was noted to have a small umbilical hernia with tenderness and was scheduled for the repair. DESCRIPTION OF PROCEDURE: The patient was brought to the operating room and placed on the operating room table in supine position. The patient was connected to EKG, blood pressure, and pulse oximetry monitors. The patient then underwent general endotracheal anesthesia. She was prepped and draped in the usual sterile fashion. First, a standard time-out procedure took place when everybody in the room agreed as to the patient's identity, diagnosis, and procedure to be performed. Using lidocaine mixed with Marcaine, the incision was made just below the costal margin in the midclavicular line. Under direct visualization through the Visiport, the scope was advanced with the port into the abdominal cavity. On a careful evaluation of the abdominal cavity, it was noted that there were some smaller pieces of the omentum to the right lower quadrant laterally as well as left upper quadrant adjacent to the site of the 10-mm port. At this point, we placed a second port in anterior axillary line just above the iliac crest under direct vision. Once this was done, a 5-mm scope was put in through that port. On careful evaluation, the entry site for the 10-mm port was examined and was noted not to injure any adjacent omentum. At this point, we proceeded with careful dissection of the preperitoneal fat pad from the area where the umbilical hernia was. The fat containing hernia was reduced. Then, the fat was removed. The hernia itself was completely exposed. It was about 1-cm sized defect. The 9-cm Symbotex mesh was placed into the abdominal cavity with a string attached for rubbing it and pulling it against the abdominal wall. The rough side was pushed against the abdominal wall, and the smooth side was turned towards the bowel. The mesh was then attached with Bard tacker in two rows of the erica. Once in place, we then carefully released pneumoperitoneum. The both trocar sites were examined again. There was no bleeding noted. The trocars were removed. The wounds were closed using 0 Vicryl for the fascia, 3-0 Vicryl for the subcutaneous tissue and 4-0 Monocryl for the skin. Sterile Dermabond dressing was applied to the wound. The patient tolerated the procedure well, and there were no complications. The patient was then awakened and transferred to the recovery room for further observation. Jorge Salamanca MD
== END 2018-04-20 17:45 | disposition home or self-care (01) ==
LOC: SDS 07:47
PROVIDERS: ATTEND General Practice
DX: K42.9 Umbilical hernia without obstruction or gangrene (principal); I10 Essential (primary) hypertension
CPT/HCPCS: 49652; C1781; J0690; J1170 ×2; J2001; J2250; J2405; J2704; J3010; J7030; J7120

== ENCOUNTER 2018-04-23 13:25 | Outpatient (CLI) | payer MEDICARE | END 2018-04-23 13:26 | disposition home or self-care (01) | LOC: RAD 13:25 | DX: Z98.890 Other specified postprocedural states (principal); M79.604 Pain in right leg; M79.605 Pain in left leg; M79.89 Other specified soft tissue disorders ==